=== PATIENT | female | born 1965 | race Caucasian/White ===

== ENCOUNTER → 2019-04-15 | Outpatient (CLI) | payer OTHER ==
--- NOTE | 2019-04-15 13:58 | RAD ---
DATE: 04/15/2019. EXAM: DIGITAL DIAGNOSTIC LT, US GUID NDL PLACE/ASPI/BX. HISTORY: Left breast mass. Biopsy is requested. COMPARISON: 03/19/2019. FINDINGS: Breast Density: HETERO The breast parenchyma is heterogenously dense, which could reduce sensitivity of mammography. Breast parenchyma level C.. The procedure along with its risks and benefits were explained to the patient via nail machine operator. She agreed to proceed. A timeout procedure was performed. Sonographic evaluation of the left breast redemonstrates a hypoechoic mass at the 10:00 position 6 cm from the nipple. The overlying skin was sterilely prepped and infiltrated with 1% lidocaine for local anesthesia. Under ultrasound guidance, 5 14-gauge core needle specimens were obtained and submitted in formalin. A postbiopsy clip was placed under ultrasound guidance. There were no immediate complications. Mammographic images were obtained on the left in CC and MLO projections and interpreted on a dedicated workstation. These demonstrate the postbiopsy clip in correspondence with the targeted lesion. IMPRESSION: 1. Successful ultrasound-guided biopsy of a left breast mass.
--- NOTE | 2019-04-18 09:06 | PATHOLOGY ---
[facility] Accession Number: [id number] . 01 Material submitted: . breast - LEFT BREAST MASS, 10:00, 6CMFN. Modifiers: left, 10:00 . 01 Clinical history: . Left breast mass 0.5 cm . 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 - Benign ductal epithelium with associated fibrous tissue. . (Please see comment) . (SKM:adeline; 04/16/2019) QMS 04/16/2019 1302 Local . 02 Comment: This case has also been reviewed by Dr. Derick Mcnair M.D., who agrees with the diagnosis. . (SKM:adeline; 04/16/2019) . 02 Electronically signed: . Mika Delaney MD, Pathologist NPI- [id number] . 01 Gross description: . Received in formalin labeled "Pierre, Maryann, left breast," and additionally labeled on the requisition as "10:00, 6 cm," are 5 distinct needle cores of yellow-alfonso fibrofatty tissue ranging from 0.2-2.1 cm in length and measuring 0.2 cm each in diameter. The specimen is submitted in its entirety in cassettes A1-A3. The cold ischemic time is 5 minutes. The total formalin fixation time is. In 6 hours and less than 72 hours. Due to the minute nature of some of the specimens in cassette A2 and A3, they may not survive processing. (TSD; 04/15/2019) TOB/TOB 04/16/2019 1300 Local . 02 Pathologist provided ICD-10: D24.2 . 02 CPT . 524714 Specimen Comment: A courtesy copy of this report has been sent to [phone], [phone] Specimen Comment: [id number] Specimen Comment: Report sent to / DR SEE Performed [facility]: [facility] [address] [id number] MD Johnson Obando MD Phone: [phone] Performed at: 02 [facility] [address] [place], [place] [id number] MD Monty Woods MD Phone: [phone]
== END | disposition home or self-care (01) ==
LOC: US 10:17
PROVIDERS: ATTEND Physician Assistant Medical
DX: N63.20 Unspecified lump in the left breast, unspecified quadrant (principal); D24.2 Benign neoplasm of left breast
CPT/HCPCS: 19083; 77065; 88305; C1713; 19081; 76942